=== PATIENT | female | born 1960 | race Caucasian/White ===

== ENCOUNTER → 2024-04-02 13:19 | Outpatient (REF) | payer OTHER, SELFPAY | LOC: HWWDC 13:19 | PROVIDERS: ATTENDING PHYSICIAN Nurse Practitioner Family | DX: Z12.31 Encounter for screening mammogram for malignant neoplasm of breast (principal) | CPT/HCPCS: 77063; 77067 ==

== ENCOUNTER → 2025-03-03 13:34 | Outpatient (REF) | payer MEDICARE, OTHER, SELFPAY | LOC: HWRAD 13:34 | PROVIDERS: ATTENDING PHYSICIAN Nurse Practitioner Family | DX: E78.2 Mixed hyperlipidemia (principal) | CPT/HCPCS: 75571 ==